=== PATIENT | male | born 1990 | race Caucasian/White ===

== ENCOUNTER 2017-10-23 23:03 | Emergency (ER) | payer BC, MEDICAID ==
[~2017-10-23] VITALS: Ht 180.3 cm; Wt 90.3 kg
[2017-10-24 02:36] VITALS: BP 118/72
== END 2017-10-24 02:37 | disposition home or self-care (01) ==
LOC: ER 23:04
DX: R07.89 Other chest pain (principal); F17.200 Nicotine dependence, unspecified, uncomplicated; F11.10 Opioid abuse, uncomplicated
CPT/HCPCS: 71045; 71046; 99284

== ENCOUNTER 2018-01-07 10:58 | Emergency (ER) | payer BC, MEDICAID ==
[~2018-01-07] VITALS: Ht 610.5 cm; Wt 89.0 kg
[2018-01-07] MEDS ORDERED: ipratropium/albuterol 3ml nebule NEB ONE (11:55)
[2018-01-07] MEDS ORDERED: ALBU18HF2 INH (12:30)
[2018-01-07] MEDS ORDERED: AZIT-57 PO (12:30)
[2018-01-07] MEDS ORDERED: GUAI1TBM19 PO (12:30)
[2018-01-07 12:35] VITALS: BP 135/60
[2018-01-07] MEDS ORDERED: ketorolac tromethamine 15mg/ml inj. IM ONE (12:50)
== END 2018-01-07 13:07 | disposition home or self-care (01) ==
LOC: ER 10:59
DX: J18.1 Lobar pneumonia, unspecified organism (principal); F17.200 Nicotine dependence, unspecified, uncomplicated; F11.10 Opioid abuse, uncomplicated; Z79.899 Other long term (current) drug therapy
CPT/HCPCS: 71046; 94640; 94760; 96372; 99284; J1885